=== PATIENT | female | born 1990 | race Caucasian/White ===

== ENCOUNTER 2017-02-15 10:20 | Emergency (ER) | payer MEDICAID, OTHER ==
[~2017-02-15] VITALS: Ht 160 cm; Wt 58.0 kg
[2017-02-15 12:09] LABS: CLARITY URINE CLOUDY (CLEAR); COLOR URINE YELLOW (YELLOW); GLUCOSE URINE NEGATIVE (NEGATIVE); KETONES URINE NEGATIVE (NEGATIVE); LEUKOCYTE ESTERASE URINE NEGATIVE (NEGATIVE); NITRITE URINE NEGATIVE (NEGATIVE); OCCULT BLOOD URINE NEGATIVE (NEGATIVE); PROTEIN URINE NEGATIVE (NEGATIVE); SPECIFIC GRAVITY URINE 1.027 (1.005-1.030); UROBILINOGEN URINE 0.2 E.U./dL (0.2-1.0)
[2017-02-15] MEDS ORDERED: ACETAMINOPHEN 500MG TABLET PO ONE (14:45)
[2017-02-15 15:25] VITALS: BP 122/79
== END 2017-02-15 16:11 | disposition home or self-care (01) ==
LOC: ER 10:39
DX: M54.9 Dorsalgia, unspecified (principal); Z90.49 Acquired absence of other specified parts of digestive tract; F12.10 Cannabis abuse, uncomplicated
CPT/HCPCS: 81001; 81025; 99283